=== PATIENT | male | born 1995 | race Caucasian/White ===

== ENCOUNTER 2024-03-09 13:17 | Emergency (ER) | payer OTHER ==
[~2024-03-09] VITALS: Ht 170.1 cm; Wt 65.8 kg
[2024-03-09] MEDS ORDERED: MORPHINE Sulfate 2 MG/ML SYR IV ONE ×2 (13:30→14:55)
[2024-03-09] MEDS ORDERED: ceFAZolin sodium 1 GM in SYRINGE INFUSION 10 ML IV ONE (13:30)
[2024-03-09] MEDS ORDERED: Ondansetron Hydrochloride 4 MG/2 ML VIAL IV ONE (13:30)
[2024-03-09] MEDS ORDERED: Tdap Vaccine 0.5 ML SYR (Adult Vaccine) IM ONE (13:30)
[2024-03-09] MEDS ORDERED: SODIUM CHLORIDE 0.9% 1,000 ML IV ONE (13:30)
[2024-03-09] MEDS ORDERED: Bacitracin Zinc 14 GM TUBE T ONE (13:35)
[2024-03-09] MEDS ORDERED: Lidocaine Hydrochloride 2% 10 ML AMP SC ONE (13:35)
[2024-03-09] MEDS ORDERED: ceFAZolin sodium/sodium chlor 10 ML IV ONE (13:45)
[2024-03-09 16:42] LABS: BASO % 0.3 % (0.0-1.0); EOS % 0.2 % (1.0-4.0); HEMATOCRIT 43.9 % (42.0-52.0); LYMPH % 7.8 % (27.0-41.0); MEAN CELL VOLUME 87.1 fl (80.0-94.0); MEAN CORPUSCULAR HGB 28.6 pg (27.0-31.0); MEAN CORPUSCULAR HGB CONC 32.8 g/dl (33.0-37.0); MEAN PLATELET VOLUME 10.5 fl (9.6-12.3); MONO # 0.9 10*3/uL (0.1-1.0); NEUT # 10.5 10*3/uL (2.3-7.9); NEUT % 84.5 % (47.0-73.0); PLATELET COUNT AUTOMATED 212 10*3/uL (130-400); RED BLOOD COUNT 5.04 10*6/uL (4.50-5.90); RED CELL DISTRI WIDTH 13.5 % (0-14.5); WHITE BLOOD COUNT 12.4 10*3/uL (4.8-10.8)
[2024-03-09 17:01] LABS: ALKALINE PHOSPHATASE 50 U/L (46-116); BUN 11 mg/dl (9-23); CHLORIDE 108 mmol/L (98-107); CPK 289 U/L (34-171); POTASSIUM 3.4 mmol/L (3.4-5.1); SGPT/ALT 14 U/L (5-49)
== END 2024-03-09 17:35 | disposition short-term general hospital (02) ==
LOC: ED 13:17
PROVIDERS: Nurse Practitioner Family
DX: S51.812A Laceration without foreign body of left forearm, initial encounter (principal); S50.812A Abrasion of left forearm, initial encounter; F90.9 Attention-deficit hyperactivity disorder, unspecified type; W22.8XXA Striking against or struck by other objects, initial encounter; Y93.89 Activity, other specified; Y92.89 Other specified places as the place of occurrence of the external cause; Y99.8 Other external cause status